=== PATIENT | female | born 1955 | race Caucasian/White ===

== ENCOUNTER → 2021-08-19 | Day surgery (SDC) | payer OTHER | END | disposition home or self-care (01) | LOC: JRADIR 09:41 | PROVIDERS: ATTEND Family Medicine Geriatric Medicine | PROC: 0G9G3ZX Drainage of Left Thyroid Gland Lobe, Percutaneous Approach, Diagnostic (ICD-10-PCS; principal; 2021-08-19) | DX: E04.1 Nontoxic single thyroid nodule (principal) | CPT/HCPCS: 10005; 76942; 88173; 88305-TC ==

== ENCOUNTER 2022-02-09 19:00 | Emergency (ER) | payer OTHER ==
[2022-02-09 19:19] VITALS: BP 170/89; PULSE 92; TEMP 98.1; BMI 27.4
[2022-02-09] MEDS ORDERED: CEPHALEXIN MONOHYDRATE 500 MG CAPSULE (UD) PO ONE (21:05)
[2022-02-09] MEDS ORDERED: CEPHALEXIN MONOHYDRATE 500 MG CAPSULE (UD) ONE (21:17)
[2022-02-09 21:56] LABS: EPI CELLS 8 /uL (0-25.1); HYALINE CASTS 0 /uL (0-3.1); PH,URINE 5.5 (5.0-8.0); URINE APPEARANCE CLEAR; URINE BACTERIA 39 /uL (0-1359); URINE BILIRUBIN NEGATIVE (NEGATIVE); URINE COLOR YELLOW; URINE GLUCOSE (UA) NEGATIVE (NEGATIVE); URINE KETONE NEGATIVE (NEGATIVE); URINE LEUK ESTERASE NEGATIVE (NEGATIVE); URINE NITRITE NEGATIVE (NEGATIVE); URINE PROTEIN NEGATIVE (NEGATIVE); URINE RBC 37 /uL (0-23.9); URINE UROBILINOGEN 0.2 mg/dL (0.2-1.0); URINE WBC 11 /uL (0-25.8)
== END 2022-02-09 21:43 | disposition home or self-care (01) ==
LOC: JER 19:00
DX: N39.0 Urinary tract infection, site not specified (principal)
CPT/HCPCS: 81003; 87086; 99283-25

== ENCOUNTER → 2022-05-29 | Day surgery (SDC) | payer OTHER ==
[2022-05-28 08:36] VITALS: BMI 27.4
[~2022-05-29] MED LIST: TETRAHYDROZOLINE HCL EYE DROPS OD PRN
[2022-05-29 10:34] VITALS: TEMP 98.2
[2022-05-29 12:05] VITALS: BP 125/89; PULSE 80; RESP 17
== END | disposition home or self-care (01) ==
LOC: JASU-ENDO 04:17
PROVIDERS: ATTEND Internal Medicine Gastroenterology
PROC: 0DBM8ZX Excision of Descending Colon, Via Natural or Artificial Opening Endoscopic, Diagnostic (ICD-10-PCS; 2022-05-29)
PROC: 0DBL8ZX Excision of Transverse Colon, Via Natural or Artificial Opening Endoscopic, Diagnostic (ICD-10-PCS; 2022-05-29)
PROC: 0DBH8ZX Excision of Cecum, Via Natural or Artificial Opening Endoscopic, Diagnostic (ICD-10-PCS; principal; 2022-05-29 09:45)
DX: Z12.11 Encounter for screening for malignant neoplasm of colon (principal); Z86.010 Personal history of colon polyps; D12.0 Benign neoplasm of cecum; D12.4 Benign neoplasm of descending colon; D12.3 Benign neoplasm of transverse colon; K57.30 Diverticulosis of large intestine without perforation or abscess without bleeding; Z85.3 Personal history of malignant neoplasm of breast
CPT/HCPCS: 88305-TC

== ENCOUNTER 2022-06-26 04:37 | Day surgery (SDC) | payer OTHER ==
[2022-06-20 15:41] VITALS: BMI 28.3
[2022-06-26 16:10] VITALS: RESP 18
[2022-06-26 18:31] VITALS: BP 140/70; PULSE 74; TEMP 97.3
== END 2022-06-26 18:32 | disposition home or self-care (01) ==
LOC: JRADIR 04:37
PROVIDERS: ATTEND Family Medicine Geriatric Medicine
PROC: 07DJ3ZX Extraction of Left Inguinal Lymphatic, Percutaneous Approach, Diagnostic (ICD-10-PCS; principal; 2022-06-26)
DX: R59.0 Localized enlarged lymph nodes (principal)
CPT/HCPCS: 38505; 76882-TC-RT-FY; 77012-TC; 88305-TC; 88342-TC

== ENCOUNTER 2022-07-23 04:13 | Day surgery (SDC) | payer OTHER ==
[2022-07-22 14:24] VITALS: BMI 28.3
[2022-07-23] MEDS ORDERED: MIDAZOLAM HCL 2 MG/2 ML SINGLE DOSE VIAL ONE (09:39)
[2022-07-23 11:49] VITALS: RESP 20
[2022-07-23 13:51] VITALS: BP 132/70; PULSE 72; TEMP 97.6
== END 2022-07-23 13:15 | disposition home or self-care (01) ==
LOC: JRADIR 04:13
PROVIDERS: ATTEND Internal Medicine Hematology & Oncology
PROC: 07DC3ZX Extraction of Pelvis Lymphatic, Percutaneous Approach, Diagnostic (ICD-10-PCS; principal; 2022-07-23)
DX: C85.16 Unspecified B-cell lymphoma, intrapelvic lymph nodes (principal)
CPT/HCPCS: 49180; 88305-TC; 88342-TC

== ENCOUNTER → 2023-09-22 | Day surgery (SDC) | payer OTHER, MEDICARE | END | disposition home or self-care (01) | LOC: JRADIR 09:15 | PROVIDERS: ATTEND Family Medicine Geriatric Medicine | PROC: 0G9H3ZX Drainage of Right Thyroid Gland Lobe, Percutaneous Approach, Diagnostic (ICD-10-PCS; principal; 2023-09-22) | DX: E04.1 Nontoxic single thyroid nodule (principal) | CPT/HCPCS: 10005; 76942; 88173; 88305-TC ==

== ENCOUNTER → 2024-03-09 | Day surgery (SDC) | payer OTHER, MEDICARE | END | disposition home or self-care (01) | LOC: JRADUS-SUR 11:33 | PROVIDERS: ATTEND Internal Medicine Hematology & Oncology | PROC: 07D53ZX Extraction of Right Axillary Lymphatic, Percutaneous Approach, Diagnostic (ICD-10-PCS; principal; 2024-03-09) | DX: C82.34 Follicular lymphoma grade IIIa, lymph nodes of axilla and upper limb (principal) | CPT/HCPCS: 19083; 38525; 87899; 88305-TC; 88342-TC; A4648 ==

== ENCOUNTER 2024-05-06 04:34 | Day surgery (SDC) | payer OTHER, MEDICARE ==
[2024-05-05 13:40] VITALS: BMI 30.2
[2024-05-06] MEDS ORDERED: LIDOCAINE HCL 1%, 10 MG/ML (20ML VIAL) ONE (12:49)
[2024-05-06] MEDS ORDERED: PROPOFOL 20 ML ONE ×2 (14:11→15:10)
[2024-05-06] MEDS ORDERED: MIDAZOLAM HCL 2 MG/2 ML SINGLE DOSE VIAL ONE (14:11)
[2024-05-06] MEDS ORDERED: SUCCINYLCHOLINE CHLORIDE 200 MG/10 ML SYRINGE ONE (14:11)
[2024-05-06] MEDS: ceFAZolin SODIUM 1 GM VIAL IVPB ONE (14:20)
[2024-05-06] MEDS ORDERED: LIDOCAINE 1%/EPI 1:100000 (20 ML MULTI DOSE VIAL) ONE (14:33)
[2024-05-06] MEDS: LIDOCAINE 1%/EPI 1:100000 (20 ML MULTI DOSE VIAL) IJ ONE ×2 (14:35)
[2024-05-06] MEDS ORDERED: SEVOFLURANE 250 ML BTL ONE (15:27)
[2024-05-06] MEDS ORDERED: ACETAMINOPHEN INJECTION 100 ML IVPB ONE (15:58)
[2024-05-06] MEDS ORDERED: ONDANSETRON 4 MG/2 ML VIAL IVPUSH PRN (16:01)
[2024-05-06] MEDS: ACETAMINOPHEN 1000 MG/100 ML BAG IVPB ONE (16:05)
[2024-05-06 17:17] VITALS: RESP 18
[2024-05-06 17:53] VITALS: BP 131/72; PULSE 74; TEMP 97.5
== END 2024-05-06 18:10 | disposition home or self-care (01) ==
LOC: JASU-SURG 04:34
PROVIDERS: ATTEND Surgery
PROC: 07B50ZX Excision of Right Axillary Lymphatic, Open Approach, Diagnostic (ICD-10-PCS; principal; 2024-05-06 12:30)
DX: C82.34 Follicular lymphoma grade IIIa, lymph nodes of axilla and upper limb (principal); Z85.6 Personal history of leukemia
CPT/HCPCS: 19281; 76098-TC-FY; 77065-TC; 88305-TC; 94760; A4648; G0279-TC; J0131

== ENCOUNTER 2024-12-28 06:17 | Inpatient (IN) | payer OTHER, MEDICARE ==
[2024-12-27 09:45] VITALS: BMI 33.2
[2024-12-28] MEDS ORDERED: BUPIVACAINE HCL/PF 0.5% (5MG/ML) 10 ML VIAL ONE (07:22)
[2024-12-28] MEDS ORDERED: LIDOCAINE 1%/EPI 1:100000 (20 ML MULTI DOSE VIAL) ONE (07:23)
[2024-12-28] MEDS ORDERED: PROPOFOL 20 ML ONE ×2 (07:48→08:52)
[2024-12-28] MEDS ORDERED: MIDAZOLAM HCL 2 MG/2 ML SINGLE DOSE VIAL ONE (07:49)
[2024-12-28] MEDS ORDERED: REMIFENTANIL (ULTIVA) HCL 1 MG VIAL ONE ×2 (07:53→12:57)
[2024-12-28] MEDS ORDERED: ACETAMINOPHEN INJECTION 100 ML ONE (07:53)
[2024-12-28] MEDS ORDERED: oxyCODONE HCL 5 MG TABLET PO PRN ×2 (08:05)
[2024-12-28] MEDS ORDERED: ACETAMINOPHEN 325 MG TABLET (FP) PO PRN (08:05)
[2024-12-28] MEDS ORDERED: LACTATED RINGERS SOLUTION 1,000 ML IV SCH (08:15)
[2024-12-28] MEDS ORDERED: SUCCINYLCHOLINE CHLORIDE 200 MG/10 ML SYRINGE ONE (08:20)
[2024-12-28] MEDS: ceFAZolin SODIUM 1 GM VIAL IVPB ONE ×2 (08:30→12:30)
[2024-12-28] MEDS ORDERED: ceFAZolin SODIUM 1 GM VIAL ONE ×2 (08:42→10:55)
[2024-12-28] MEDS ORDERED: PHENYLEPHRINE HCL 10 MG/1 ML SINGLE DOSE VIAL ONE (08:47)
[2024-12-28] MEDS ORDERED: ONDANSETRON 4 MG/2 ML VIAL ONE ×2 (09:04→20:25)
[2024-12-28] MEDS ORDERED: HYDROmorphone HCl 2 MG/ML VIAL ONE (14:36)
[2024-12-28] MEDS ORDERED: LIDOCAINE HCL/PF 2% SDV 5ML VIAL ONE (15:12)
[2024-12-28] MEDS ORDERED: ALBUTEROL SO4 0.083% IH SOL 2.5 MG/3 ML VIAL.NEB. NEB ONE (15:48)
[2024-12-28] MEDS: ALBUTEROL SULFATE 0.021% (0.63 MG/3 ML) VIAL.NEB NEB ONE (15:50)
[2024-12-28 18:02] LABS: POTASSIUM 4.9 mmol/L (3.5-5.1)
[2024-12-28 18:05] LABS: BLOOD UREA NITROGEN 36.5 mg/dL (7-18); CALCIUM 8.4 mg/dL (8.5-10.1)
[2024-12-28 18:09] LABS: CREATININE 2.1 mg/dL (0.55-1.3)
[2024-12-28] MEDS: ONDANSETRON 4 MG/2 ML VIAL IVPUSH PRN (20:25)
[2024-12-28] MEDS: LACTATED RINGERS SOLUTION 1,000 ML/1,000 ML INFUS.BAG IV SCH (21:32)
[2024-12-28] MEDS: ceFAZolin 2 GRAM PREMIX BAG IVPB ONE (22:29)
[2024-12-28] MEDS: ACETAMINOPHEN 1000 MG/100 ML BAG IVPB SCH (23:34)
[2024-12-28] MEDS: CALCITRIOL 0.25 MCG CAPSULE (FP) PO ONE (23:49)
[2024-12-28] MEDS: CALCIUM (OYSTER SHELL) 500 MG TABLET (FP) PO ONE (23:50)
[2024-12-29 06:41] VITALS: RESP 18
[2024-12-29] MEDS: LEVOTHYROXINE NA 125 MCG TABLET (FP) PO SCH (07:02)
[2024-12-29] MEDS: CALCITRIOL 0.25 MCG CAPSULE (FP) PO SCH (09:46)
[2024-12-29] MEDS: ENOXAPARIN NA (PORCINE) 40 MG/0.4 ML DISP.SYRIN SQ SCH (09:46)
[2024-12-29] MEDS: CALCIUM (OYSTER SHELL) 500 MG TABLET (FP) PO SCH (09:46)
[2024-12-29 09:49] LABS: BASO % 0.5 % (0-2.0); HEMATOCRIT 34.1 % (32.4-45.2); HEMOGLOBIN 11.6 GM/dL (10.7-15.3); LYMPH % 7.9 % (8-40); MCH 30.5 pg (25.7-33.7); MCHC 33.9 g/dl (32.0-36.0); MEAN CELL VOLUME 89.9 fl (80-96); MEAN PLT VOLUME 8.1 fl (7.5-11.1); MONO % 7.6 % (3.8-10.2); PLATELET COUNT 254 10^3/uL (134-434); RBC 3.79 M/mm3 (3.60-5.2); RDW 14.1 % (11.6-15.6); WHITE BLOOD COUNT 9.3 K/mm3 (4.0-10.0)
[2024-12-29 10:13] LABS: POTASSIUM 4.4 mmol/L (3.5-5.1)
[2024-12-29 10:18] LABS: CALCIUM 9.6 mg/dL (8.5-10.1)
[2024-12-29 10:21] LABS: CREATININE 1.7 mg/dL (0.55-1.3)
[2024-12-29] MEDS: ZOLPIDEM TARTRATE 5 MG TABLET PO PRN (21:20)
[2024-12-29] MEDS: ROSUVASTATIN CA 10 MG TABLET PO SCH (21:20)
[2024-12-30] MEDS: metoPROLOL SUCCINATE 25 MG TAB.SR.24H (FP) PO SCH (09:24)
[2024-12-30] MEDS ORDERED: metoPROLOL SUCCINATE 25 MG TAB.SR.24H (FP) PO SCH (10:00)
[2024-12-30] MEDS ORDERED: ROSUVASTATIN CA 10 MG TABLET PO SCH (10:00)
[2024-12-30 11:25] LABS: BASO % 0.3 % (0-2.0); EOS % 0.8 % (0-4.5); HEMATOCRIT 35.7 % (32.4-45.2); HEMOGLOBIN 11.9 GM/dL (10.7-15.3); LYMPH % 9.7 % (8-40); MCH 30.1 pg (25.7-33.7); MCHC 33.2 g/dl (32.0-36.0); MEAN CELL VOLUME 90.5 fl (80-96); MEAN PLT VOLUME 8.2 fl (7.5-11.1); MONO % 10.2 % (3.8-10.2); PLATELET COUNT 276 10^3/uL (134-434); RBC 3.95 M/mm3 (3.60-5.2); WHITE BLOOD COUNT 7.5 K/mm3 (4.0-10.0)
[2024-12-30] MEDS: NIFEdipine E.R 60 MG TABLET PO SCH (11:29)
[2024-12-30] MEDS: PRAMIPEXOLE DIHYDROCHLORIDE 0.25 MG TABLET PO SCH (11:29)
[2024-12-30] MEDS: ALLOPURINOL 100 MG TABLET (FP) PO SCH (11:29)
[2024-12-30 11:42] LABS: POTASSIUM 4.1 mmol/L (3.5-5.1)
[2024-12-30 11:44] LABS: CALCIUM 10.1 mg/dL (8.5-10.1)
[2024-12-30 11:45] LABS: BLOOD UREA NITROGEN 25.5 mg/dL (7-18)
[2024-12-30 11:48] LABS: CREATININE 1.5 mg/dL (0.55-1.3)
[2024-12-30 12:24] VITALS: BP 143/77; PULSE 104; TEMP 98.4
== END 2024-12-30 14:38 | disposition home or self-care (01) | DRG 626 ==
LOC: J2C 06:17 → EDSTATUS 08:00 → J8W 20:25
PROVIDERS: ADMIT Surgery; ATTEND Surgery
PROC: 07B10ZZ Excision of Right Neck Lymphatic, Open Approach (ICD-10-PCS; 2024-12-28)
PROC: 07B10ZX Excision of Right Neck Lymphatic, Open Approach, Diagnostic (ICD-10-PCS; 2024-12-28)
PROC: 0GTK0ZZ Resection of Thyroid Gland, Open Approach (ICD-10-PCS; principal; 2024-12-28 09:04)
DX: C73 Malignant neoplasm of thyroid gland (principal); C92.10 Chronic myeloid leukemia, BCR/ABL-positive, not having achieved remission; C79.9 Secondary malignant neoplasm of unspecified site; R59.9 Enlarged lymph nodes, unspecified
CPT/HCPCS: 36415; 80048; 85025; 86850; 86900; 86901; 88307-TC; 88331-TC; 88341-TC; 88342-TC; 94640; 94760; J0131